=== PATIENT | female | born 1955 | race Caucasian/White ===

== ENCOUNTER 2017-05-13 10:03 | Emergency (ER) | payer OTHER ==
[~2017-05-13] VITALS: Ht 154.9 cm; Wt 75.0 kg
[2017-05-13] MEDS ORDERED: ONDANSETRON HCL 4MG/2ML VIAL IV STA (10:26)
[2017-05-13] MEDS ORDERED: SODIUM CHLORIDE 0.9% 1,000 ML IV ONE (10:26)
[2017-05-13] MEDS ORDERED: KETOROLAC 30MG/ML VIAL IV ONE (10:30)
[2017-05-13 11:28] LABS: BASOPHILS % 0.5 % (0.0-2.0); EOSINOPHILS % 0.8 % (0.0-5.0); HEMATOCRIT. 40.8 % (36.0-48.0); HEMOGLOBIN. 13.7 g/dL (12.0-16.0); LYMPHOCYTES % 50.1 % (20.0-50.0); MEAN CORPUSCULAR HEMOGLOBIN 27.7 pg (28.0-32.0); MEAN CORPUSCULAR VOLUME 82.2 fL (81.0-99.0); MEAN PLATELET VOLUME 8.3 fl (7.4-10.4); NEUTROPHILS % 42.6 % (40.0-76.0); PLATELET 236 x1000/uL (130-400); RED BLOOD CELL COUNT 4.96 mill/uL (4.2-5.4); RED CELL DISTRIBUTION WIDTH 13.2 % (11.6-14.6)
[2017-05-13] MEDS ORDERED: ONDANSETRON HCL 4MG/2ML VIAL IV ONE (11:30)
[2017-05-13] MEDS ORDERED: MORPHINE SULFATE 4 MG/ML CPJ (NOT FOR IM USE) IV ONE (11:30)
[2017-05-13 11:37] LABS: PARTIAL THROMBOPLASTIN TIME 28.5 sec (23.4-31.0); PROTHROMBIN TIME 10.2 sec (9.4-11.6)
[2017-05-13 11:38] LABS: CHLORIDE 100 mEq/L (98-107)
[2017-05-13 11:41] LABS: CARBON DIOXIDE 26 mEq/L (21-32)
[2017-05-13 11:47] LABS: TROPONIN I < 0.02 ng/mL (0.00-0.04)
[2017-05-13 12:32] LABS: CLARITY URINE CLEAR (CLEAR); COLOR URINE YELLOW (YELLOW); GLUCOSE URINE 3+ (NEGATIVE); KETONES URINE TRACE (NEGATIVE); LEUKOCYTE ESTERASE URINE 2+ (NEGATIVE); NITRITE URINE NEGATIVE (NEGATIVE); OCCULT BLOOD URINE NEGATIVE (NEGATIVE); PH URINE 8.5 (4.5-8.0); PROTEIN URINE NEGATIVE (NEGATIVE); SPECIFIC GRAVITY URINE 1.016 (1.005-1.030); UROBILINOGEN URINE 0.2 E.U./dL (0.2-1.0)
[2017-05-13 13:50] VITALS: BP 136/73
[2017-05-13] MEDS ORDERED: PIPERACILLIN/TAZ 3.375G PREMIX 50 ML IV NR (14:30)
[2017-05-13] MEDS ORDERED: PIPERACILLIN/TAZOBACTAM 3.375GM/50ML PREMIX IV ONE (14:30)
== END 2017-05-13 17:05 | disposition home or self-care (01) ==
LOC: ER 10:03
DX: R10.13 Epigastric pain (principal); R11.10 Vomiting, unspecified; E11.9 Type 2 diabetes mellitus without complications; E78.00 Pure hypercholesterolemia, unspecified; Z90.49 Acquired absence of other specified parts of digestive tract
CPT/HCPCS: 36415; 71010; 74177; 80053; 81001; 83605; 83690; 84484; 85025; 85610; 85730; 87040; 93005; 96361; 96365; 96375; 96376; 99285; J1885; J2270; J2405; J2543; J7030; Z7610

== ENCOUNTER 2020-01-14 11:20 | Emergency (ER) | payer OTHER ==
[~2020-01-14] VITALS: Ht 160 cm; Wt 105.0 kg
[2020-01-14] MEDS ORDERED: ONDANSETRON HCL 4MG/2ML INJ IV STA (12:00)
[2020-01-14] MEDS ORDERED: FAMOTIDINE 20MG/2ML VIAL IV STA (12:00)
[2020-01-14] MEDS ORDERED: MORPHINE SULFATE 4 MG/ML CPJ (NOT FOR IM USE) IV STA (12:00)
[2020-01-14] MEDS ORDERED: SODIUM CHLORIDE 0.9% 1,000 ML IV ONE (12:00)
[2020-01-14 13:11] LABS: BASOPHILS % 0.2 % (0.0-2.0); EOSINOPHILS % 0.4 % (0.0-5.0); HEMATOCRIT. 38.4 % (36.0-48.0); HEMOGLOBIN. 12.6 g/dL (12.0-16.0); LYMPHOCYTES % 54.5 % (20.0-50.0); MEAN CORPUSCULAR HEMOGLOBIN 27.5 pg (28.0-32.0); MEAN CORPUSCULAR VOLUME 83.6 fL (81.0-99.0); MEAN PLATELET VOLUME 8.5 fl (7.4-10.4); MONOCYTES % 8.8 % (2.0-8.0); NEUTROPHILS % 36.1 % (40.0-76.0); PLATELET 238 x1000/uL (130-400); RED BLOOD CELL COUNT 4.59 mill/uL (4.2-5.4); RED CELL DISTRIBUTION WIDTH 14.8 % (11.6-14.6)
[2020-01-14 13:12] LABS: CLARITY URINE CLEAR (CLEAR); COLOR URINE YELLOW (YELLOW); KETONES URINE NEGATIVE (NEGATIVE); LEUKOCYTE ESTERASE URINE 3+ (NEGATIVE); NITRITE URINE NEGATIVE (NEGATIVE); OCCULT BLOOD URINE NEGATIVE (NEGATIVE); PH URINE >=9.0 (4.5-8.0); PROTEIN URINE NEGATIVE (NEGATIVE); SPECIFIC GRAVITY URINE 1.007 (1.005-1.030); UROBILINOGEN URINE 0.2 E.U./dL (0.2-1.0)
[2020-01-14 13:16] LABS: CHLORIDE 106 mEq/L (98-107)
[2020-01-14 13:27] LABS: INR 0.9
[2020-01-14] MEDS ORDERED: CEFTRIAXONE 1 G PREMIX 50 ML IV ONE (14:00)
[2020-01-14] MEDS ORDERED: IOHEXOL-300 100 ML BOTTLE ONE (15:28)
[2020-01-14 16:15] VITALS: BP 154/81
== END 2020-01-14 16:30 | disposition home or self-care (01) ==
LOC: ER 11:20
DX: N10 Acute pyelonephritis (principal); R10.31 Right lower quadrant pain; F17.290 Nicotine dependence, other tobacco product, uncomplicated; E11.9 Type 2 diabetes mellitus without complications; E78.00 Pure hypercholesterolemia, unspecified; I10 Essential (primary) hypertension; Z90.49 Acquired absence of other specified parts of digestive tract; Z87.442 Personal history of urinary calculi; R11.2 Nausea with vomiting, unspecified
CPT/HCPCS: 36415; 74177; 80053; 81003; 83690; 85025; 85610; 87077; 87086; 87186; 96361; 96365; 96366; 96375; 99284; 99406; J0696; J2270; J2405; J3490; J7030; Q9967

== ENCOUNTER 2022-10-15 14:56 | Inpatient (IN) | payer OTHER, MEDICARE ==
[~2022-10-15] VITALS: Ht 160 cm; Wt 108.1 kg
[2022-10-15] MEDS ORDERED: ACETAMINOPHEN 325MG TABLET PO ONE (16:15)
[2022-10-15] MEDS ORDERED: METHOCARBAMOL 500MG TABLET PO ONE (16:15)
[2022-10-15 16:38] LABS: CLARITY URINE CLEAR (CLEAR); COLOR URINE YELLOW (YELLOW); KETONES URINE TRACE (NEGATIVE); LEUKOCYTE ESTERASE URINE NEGATIVE (NEGATIVE); NITRITE URINE NEGATIVE (NEGATIVE); OCCULT BLOOD URINE NEGATIVE (NEGATIVE); PH URINE 5.5 (4.5-8.0); PROTEIN URINE NEGATIVE (NEGATIVE); SPECIFIC GRAVITY URINE 1.047 (1.005-1.030)
[2022-10-15 16:52] LABS: EOSINOPHILS % 3.4 % (0.0-5.0); HEMATOCRIT. 40.5 % (36.0-48.0); HEMOGLOBIN. 13.3 g/dL (12.0-16.0); MEAN CORPUSCULAR HEMOGLOBIN 28.2 pg (28.0-32.0); MEAN PLATELET VOLUME 8.2 fl (7.4-10.4); MONOCYTES % 9.3 % (2.0-8.0); NEUTROPHILS % 35.3 % (40.0-76.0); PLATELET 256 x1000/uL (130-400); RED BLOOD CELL COUNT 4.71 mill/uL (4.2-5.4); RED CELL DISTRIBUTION WIDTH 15.2 % (11.6-14.6)
[2022-10-15 16:55] LABS: CHLORIDE 104 mEq/L (98-107)
[2022-10-15 16:58] LABS: PROTHROMBIN TIME 10.3 sec (9.6-11.0)
[2022-10-15] MEDS ORDERED: MORPHINE SULFATE 2 MG/ML CPJ (NOT FOR IM USE) IV ONE (18:45)
[2022-10-15] MEDS ORDERED: SODIUM CHLORIDE 0.9% 500 ML IV NR ×2 (19:15)
[2022-10-15] MEDS ORDERED: IOHEXOL-300 100 ML BOTTLE ONE (21:05)
[2022-10-15] MEDS ORDERED: TOPUD MT (23:02)
[2022-10-15] MEDS ORDERED: IBUP-2028 MT (23:02)
[2022-10-15] MEDS ORDERED: MORPHINE SULFATE 4 MG/ML CPJ (NOT FOR IM USE) IV ONE (23:30)
[2022-10-16] MEDS ORDERED: CLONIDINE 0.1MG TABLET PO PRN (02:15)
[2022-10-16] MEDS ORDERED: GUAIFENESIN 200MG/10ML SUGAR FREE UDC PO PRN (02:15)
[2022-10-16] MEDS ORDERED: ENOXAPARIN 40MG/0.4ML SYR SUBCUT SCH (02:15)
[2022-10-16] MEDS ORDERED: ONDANSETRON HCL 4MG/2ML INJ IV PRN (02:15)
[2022-10-16] MEDS ORDERED: IPRATROPIUM/ALBUTEROL 0.5-3(2.5)MG/3ML NEB HHN PRN (02:15)
[2022-10-16] MEDS ORDERED: ACETAMINOPHEN 325MG TABLET PO PRN ×2 (02:15)
[2022-10-16] MEDS ORDERED: DOCUSATE SODIUM 100MG CAPSULE PO PRN (02:15)
[2022-10-16] MEDS ORDERED: HYDROCODONE/ACETAMINOPHEN 5/325MG TABLET PO PRN (02:15)
[2022-10-16] MEDS ORDERED: DEXTROSE 50% WATER 50ML SYRINGE IV PRN (02:15)
[2022-10-16] MEDS ORDERED: SODIUM CHLORIDE 0.9% 500 ML IV NR (02:15)
[2022-10-16] MEDS ORDERED: MAGNESIUM/ALUMINUM HYDROXIDE/SIMETHICONE 30ML UDC PO PRN (02:15)
[2022-10-16] MEDS: SODIUM CHLORIDE 0.9% 1,000 ML IV NR ×3 (02:37→05:15)
[2022-10-16] MEDS ORDERED: ALBUTEROL (0.083%) 2.5MG/3ML NEB HHN PRN (02:45)
[2022-10-16] MEDS ORDERED: IPRATROPIUM BROMIDE (0.02%) 0.5MG/2.5ML NEB HHN PRN (02:45)
[2022-10-16 04:46] VITALS: BP 135/62
[2022-10-16] MEDS: INSULIN LISPRO 100 UNITS/ML SUBCUT SCH ×2 (06:33→14:53)
[2022-10-16] MEDS: BLOOD SUGAR DIAGNOSTIC STRIP TEST SCH ×2 (06:33→12:20)
[2022-10-16 08:00] VITALS: BP 126/69
[2022-10-16] MEDS ORDERED: ENOXAPARIN 30MG/0.3ML SYR SUBCUT SCH (09:00)
[2022-10-16] MEDS ORDERED: FAMOTIDINE 20MG/2ML VIAL IV SCH (09:00)
[2022-10-16 10:17] LABS: AMYLASE 55 IU/L (25-115)
[2022-10-16] MEDS ORDERED: TAMSULOSIN HCL 0.4MG SR CAPSULE PO SCH (10:30)
[2022-10-16] MEDS ORDERED: SODIUM CHLORIDE 0.9% 1,000 ML IV SCH (10:30)
[2022-10-16] MEDS ORDERED: INFLUENZA VACCINE 05/PF 0.5 ML SYRINGE IM ONE (11:00)
[2022-10-16] MEDS ORDERED: PNEUMOCOCCAL 23-VAL P-SAC VAC 0.5 ML IM ONE (11:00)
[2022-10-16 12:00] VITALS: BP 133/59
[2022-10-16] MEDS ORDERED: TAMS-11 PO (14:29)
[2022-10-16] MEDS ORDERED: IBUP-2030 PO (14:29)
[2022-10-16 14:55] LABS: HEPATITIS B SURFACE AB 38.2 mIU/mL
[2022-10-16 15:15] VITALS: BP 133/59
[2022-10-17] MEDS ORDERED: IBUPROFEN 800MG TABLET PO PRN (14:15)
== END 2022-10-16 16:45 | disposition home or self-care (01) | DRG 694 ==
LOC: ER 14:56 → EDBEDREQ 23:39 → 6EST 10-16 00:52 → EDBEDREQ 10-16 01:01 → EDBEDREQTM 10-16 01:01 → EDBEDREQDT 10-16 01:01 → EDBEDREQ 10-16 01:02
PROVIDERS: ADMIT Internal Medicine; ATTEND Internal Medicine
DX: N20.0 Calculus of kidney (principal); E11.9 Type 2 diabetes mellitus without complications; K57.90 Diverticulosis of intestine, part unspecified, without perforation or abscess without bleeding; Z20.822 Contact with and (suspected) exposure to COVID-19; I10 Essential (primary) hypertension; E78.00 Pure hypercholesterolemia, unspecified; Z90.49 Acquired absence of other specified parts of digestive tract; Z87.440 Personal history of urinary (tract) infections; Z79.4 Long term (current) use of insulin
CPT/HCPCS: 36415; 74174; 80053; 81003; 82150; 82340; 82962; 83036; 83605; 83735; 83935; 84105; 84560; 85025; 85379; 86705; 86706; 86803; 87077; 87186; 87426; 99285; C1893; C9803; J1650; J1815; J2270; J3490; J7030; Q9967

== ENCOUNTER 2023-08-31 12:24 | Emergency (ER) | payer MEDICARE, OTHER ==
[~2023-08-31] VITALS: Ht 167.6 cm; Wt 109.0 kg
[~2023-08-31 12:24] MED LIST: IBUP-2030 PO; TAMS-11 PO; TOPUD MT
[2023-08-31 12:32] VITALS: O2SAT 100
[2023-08-31] MEDS ORDERED: IBUPROFEN 600MG TABLET PO ONE (14:30)
[2023-08-31 15:00] VITALS: BP 123/63
[2023-08-31] MEDS ORDERED: DICL100G32 TP (15:45)
[2023-08-31] MEDS ORDERED: NAPR-1129 MT (15:46)
[2023-08-31 16:11] VITALS: PULSE 88; RESP 16
[2023-08-31] MEDS ORDERED: IBUPROFEN 600MG TABLET PO SCH (16:15)
== END 2023-08-31 16:28 | disposition home or self-care (01) ==
LOC: ER 12:24
DX: M17.11 Unilateral primary osteoarthritis, right knee (principal); E78.00 Pure hypercholesterolemia, unspecified; E11.9 Type 2 diabetes mellitus without complications; Z98.890 Other specified postprocedural states; Z90.49 Acquired absence of other specified parts of digestive tract; W18.30XA Fall on same level, unspecified, initial encounter; Y93.01 Activity, walking, marching and hiking; Y92.89 Other specified places as the place of occurrence of the external cause; Y99.8 Other external cause status
CPT/HCPCS: 73560; 99283

== ENCOUNTER 2024-06-12 13:00 | Emergency (ER) | payer MEDICARE ==
[~2024-06-12] VITALS: Ht 160 cm; Wt 108.8 kg
[~2024-06-12 13:00] MED LIST changes: +DICL100G32 TP; +NAPR-1129 MT
[2024-06-12 13:04] VITALS: O2SAT 95
[2024-06-12] MEDS ORDERED: ASPIRIN 325MG EC TABLET PO ONE (14:45)
[2024-06-12 15:51] LABS: BASOPHILS % 0.5 % (0.0-2.0); EOSINOPHILS % 1.6 % (0.0-5.0); HEMATOCRIT. 39.9 % (36.0-48.0); HEMOGLOBIN. 13.1 g/dL (12.0-16.0); MEAN CORPUSCULAR HEMOGLOBIN 28.4 pg (28.0-32.0); MEAN CORPUSCULAR HGB CONC 32.7 g/dL (31.0-37.0); MEAN CORPUSCULAR VOLUME 86.7 fL (81.0-99.0); MONOCYTES % 7.8 % (2.0-8.0); NEUTROPHILS % 31.1 % (40.0-76.0); PLATELET 245 x1000/uL (130-400); RED CELL DISTRIBUTION WIDTH 14.3 % (11.6-14.6)
[2024-06-12 15:57] LABS: CHLORIDE 107 mEq/L (98-107); POTASSIUM 4.3 mEq/L (3.5-5.1); SODIUM 140 mEq/L (136-145)
[2024-06-12 15:58] LABS: CALCIUM 9.5 mg/dL (8.7-10.4); CARBON DIOXIDE 27 mEq/L (21-32)
[2024-06-12 16:03] LABS: CREATININE 0.7 mg/dL (0.6-1.0); GLUCOSE 166 mg/dL (70-105); UREA NITROGEN BLOOD 11 mg/dL (9-23)
[2024-06-12 16:06] LABS: INR 0.9; PROTHROMBIN TIME 10.2 sec (9.6-11.0)
[2024-06-12 16:21] LABS: TROPONIN I HIGH SENSITIVITY < 4 ng/L (3.0-34)
[2024-06-12] MEDS: ASPIRIN 325MG EC TABLET PO NR (17:27)
[2024-06-12 20:12] VITALS: BP 160/80; PULSE 80; RESP 16; TEMP 37.11408; O2SAT 98
== END 2024-06-12 20:29 | disposition hospice, inpatient (51) ==
LOC: ER 13:11 → EDBEDREQ 14:44 → ER 20:29
DX: G45.9 Transient cerebral ischemic attack, unspecified (principal); I10 Essential (primary) hypertension; E11.9 Type 2 diabetes mellitus without complications; E78.00 Pure hypercholesterolemia, unspecified; Z79.899 Other long term (current) drug therapy; Z90.49 Acquired absence of other specified parts of digestive tract; Z98.890 Other specified postprocedural states
CPT/HCPCS: 36415; 71045; 80048; 82962; 83880; 84484; 85025; 99291